=== PATIENT | female | born 1985 | race African-American/Black ===

== ENCOUNTER 2016-03-04 09:56 | Emergency (ER) ==
--- NOTE | 2016-03-04 11:48 | PROVIDER DOCUMENTATION ---
HPI-Musculoskeletal Pain/Inj - GENERAL Chief Complaint: Back Pain Stated Complaint: back pain Time Seen by Provider: 03/04/16 11:32 Source: patient - HX OF PRESENT ILLNESS-MUSKULOSKELTAL Nature of Presenting Problem: 30 y/o AAF c/o "spine pain." States it is right down the middle, for 2 days. States she has had back pain before. Denies injury, states this has happened twice before. Denies flank pain, dysuria, hematuria, frequency, urgency, chance of or vaginal discharge. Denies abdominal pain, n/v/d. Denies fevers, chills, night sweats, bowel or bladder incontinence, saddle anesthesias or paresthesias. Pain is aching, non radiating, only "in the spine" Review of Systems - Adult - REVIEW OF SYSTEMS - ADULT Constitutional: reports: no symptoms reported. denies: chills, fever, fatique Eyes: reports: no symptoms reported. denies: blurred vision, double vision, eye pain Ears, Nose, Mouth & Throat: reports: no symptoms reported. denies: ear pain, nose pain, throat pain Cardiovascular: reports: no symptoms reported. denies: chest pain, palpitations Respiratory: reports: no symptoms reported. denies: cough, shortness of breath , wheezing Gastrointestinal: reports: no symptoms reported. denies: abdominal pain, diarrhea, nausea, vomiting Genitourinary: reports: no symptoms reported. denies: see HPI, discharge, frequency, incontinence Musculoskeletal: reports: see HPI, back pain. denies: bone pain, joint pain, muscle aches Integumentary: reports: no symptoms reported. denies: rash Neurological: reports: no symptoms reported. denies: ataxia, dizziness/vertigo , headache/migraines Psychiatric: reports: no symptoms reported Endocrine: reports: no symptoms reported Hematologic/Lymphatic: reports: no symptoms reported Allergic/Immunologic: reports: no symptoms reported All Other Systems: Reviewed and Negative Past History - Adult - PAST MEDICAL HISTORY-ADULT Review of Records: reports: Old Records Reviewed, Nursing Assessment Review, Medications Reviewed, Social history reviewed & non-contributory. Major Childhood Illnesses: reports: denies history Cardiovascular: reports: denies history Respiratory: reports: asthma Gastrointestinal: reports: denies history Obstetrical/Gynecological: reports: denies history Genitourinary: reports: denies history Musculoskeletal: reports: denies history Neurological: reports: denies history Endocrine/Immune: reports: denies history Other Conditions: reports: denies history - PRIOR SURGERIES/PROCEDURES Surgical/Procedure History: reports: orthopedic (extremity) - IMMUNIZATION STATUS Childhood Immunizations: See Nurse Assessment Flu Vaccine: See Nurse Assessment - FAMILY HISTORY Family History: reviewed, not pertinent Physical Exam-Injury Related - Physical Exam-Injury Related Initial Vital Signs Reviewed: Yes General Appearance: appears well, alert, no apparent distress Eyes: PERRL/EOMI, pink conjunctivae Head, Ears, Nose, Mouth & Throat: normocephalic/atraumatic, moist mucous membranes, normal ENT inspection Neck: non-tender, full range of motion, supple, normal inspection Respiratory: chest non-tender, lungs clear, normal breath sounds, no pleuratic chest pain, no respiratory distress, no accessory muscle use. negative: respiratory distress, decreased breath sounds, accessory muscle use, crackles, rales, rhonchi, stridor, wheezing Cardiovascular: normal peripheral pulses, regular rate, rhythm, no edema, no gallop, no JVD, no murmur Peripheral Pulses: dorsalis-pedis (R): 2+, dorsalis-pedis (L): 2+ Lymphatic: no adenopathy Back Exam: normal inspection, no CVA tenderness, no vertebral tenderness. negative: CVA tenderness, decreased range of motion, vertebral tenderness Extremity: normal range of motion, non-tender, normal gait, normal inspection, no pedal edema, no calf tenderness, normal capillary refill, pelvis stable Integumentary: normal color, warm/dry Neurologic: entertainment musician II-XII nml as tested, no motor/sensory deficits Psych/Mental Status: AL, normal mood/affect, normal thought content, normal thought process, oriented x 3 - Glascow Coma Score Best Eye Response ([place]): (4) open spontaneously Best Verbal Response ([place]): (5) oriented Best Motor Response ([place]): (6) obeys commands Progress - PLAN OF CARE/RESULTS Progress/Plan/Lab Results: Vital Signs Temp Pulse Resp BP Pulse Ox 03/04/16 10:15 97.9 F 76 16 125/78 100 latex Allergy (Verified 03/04/16 11:05) RASH Penicillins Allergy (Verified 03/04/16 11:05) Unknown Albuterol Sulfate Inhaler [Ventolin Hfa] 2 puff INH Q6H PRN PRN 08/14/15 Orders Category Date Time Status ED: Urine Bedside ORDERED Care 03/04/16 11:35 Active LUMBAR SPINE [RAD] Stat Exams 03/04/16 11:35 Ordered preg neg Orders Category Date Time Status ED: Urine Bedside ORDERED Care 03/04/16 11:35 Active LUMBAR SPINE [RAD] Stat Exams 03/04/16 11:35 Taken Ketorolac [Toradol] Med 03/04/16 12:13 Discontinued 30 mg IM NOW ONE Orphenadrine [Norflex] Med 03/04/16 12:13 Discontinued 60 mg IM NOW ONE - XRAY 1 XRAY: Bilateral XRAY Study: Lumbar Spine Impression: Normal (NAD reviewed by Dr. Rocha) Departure - Departure Time of Disposition Order: 13:09 DIAGNOSIS: Lower back pain Qualifiers: Chronicity: acute Back pain laterality: bilateral Sciatica presence: without sciatica Qualified Code(s): M54.5 - Low back pain Disposition: HOME Certified Medical Emergency: Emergent Condition: Stable Additional Instructions: Follow up with your primary care physician Follow up with Dr. Yepez, orthopedic ED Follow Up Instructions: You have been treated by a care provider in the Emergency Department. These instructions are being provided to you so you can have an understanding of how to care for yourself upon discharge. Upon discharge from the Emergency Department, you are responsible for making arrangements for follow-up care by a physician of your choice. Take all prescribed medications as directed. Return to the Emergency Department immediately for any new or worsening symptoms. You may call the Physician Referral phone number at [phone] to obtain a list of Physicians who are taking new patients. Prescriptions: Famotidine [Pepcid] 20 mg PO DAILY #20 tablet Methocarbamol [Robaxin] 500 mg PO BID #14 tablet Ketorolac [Toradol] 10 mg PO Q6H PRN PRN #20 tablet PRN Reason: Pain Attestation - Physician/ Mid-level Attestation Patient care was provided by Mid-level provider (FAMILY DEVELOPMENT SPECIALIST/PA):: Yes Mid-level provider:: Brenda Mobley Mid-level documentation review:: The Mid-level provider documentation, treatment plan and medical decision making was reviewed by the physician who agrees with all treatment and medical decision making by the MLP.
[2016-03-04] MEDS ORDERED: TORADOL IM ONE (12:13)
[2016-03-04] MEDS ORDERED: NORFLEX IM ONE (12:13)
[2016-03-04 12:29] VITALS: BP 130/98
--- NOTE | 2016-03-04 14:01 | Diag Imaging Result Document ---
PROCEDURE NAME: LUMBAR SPINE - 03/04/2016 PLAIN RADIOGRAPHS OF THE LUMBAR SPINE 6 VIEWS: COMPARISON: None available. FINDINGS: There are mild degenerative changes at L5-S1 with loss of disk space height and tiny marginal osteophyte formation. The remaining intervertebral disk spaces and vertebral body heights are well maintained. There is no evidence of fracture, subluxation, or intrinsic osseous lesion, otherwise. Surrounding soft tissues are essentially unremarkable. IMPRESSION: Fairly mild degenerative disk disease at L5-S1 as described.
== END 2016-03-04 13:33 | disposition home or self-care (01) ==
LOC: ED 09:56
DX: M54.5 Low back pain (principal)
CPT/HCPCS: 72110; 96372; J1885; J2360